=== PATIENT | male | born 1970 | race Two or more races ===

== ENCOUNTER → 2017-08-10 | Outpatient (REF) | payer BC, OTHER | LOC: M SMT 12:41 | PROVIDERS: ATTEND Nurse Practitioner Women's Health | DX: R31.29 Other microscopic hematuria (principal) ==

== ENCOUNTER → 2018-05-13 | Outpatient (CLI) | payer BC ==
[2018-05-13 13:10] LABS: HEMATOCRIT 44.8 % (42.0-52.0); HEMOGLOBIN 15.8 g/dl (13.5-17.5); MEAN CORPUSCULAR HGB CONC 35.3 g/dl (32.0-36.5); MEAN CORPUSCULAR VOLUME 90.9 fl (80.0-96.0); PLATELET COUNT, AUTOMATED 220 10^3/uL (150-450); RED BLOOD COUNT 4.93 10^6/uL (4.30-6.10)
[2018-05-13 13:59] LABS: ANION GAP 10 MEQ/L (8-16); BLOOD UREA NITROGEN 12 MG/DL (7-18); CALCIUM LEVEL 8.5 MG/DL (8.5-10.1); CARBON DIOXIDE LEVEL 27 MEQ/L (21-32); CHLORIDE LEVEL 100 MEQ/L (98-107); CREATININE FOR GFR 0.88 MG/DL (0.70-1.30); GLOMERULAR FILTRATION RATE > 60.0 (>56); GLUCOSE, FASTING 96 MG/DL (70-100); PSA SCREENING 2.59 NG/ML (< 4.0); SODIUM LEVEL 137 MEQ/L (136-145)
== END ==
LOC: M SMT 11:58
DX: Z12.5 Encounter for screening for malignant neoplasm of prostate (principal); R59.9 Enlarged lymph nodes, unspecified; R10.30 Lower abdominal pain, unspecified
CPT/HCPCS: 80048

== ENCOUNTER → 2018-05-21 | Outpatient (CLI) | payer BC ==
[~2018-05-21] MED LIST: ISOVUE-370 76% 100ML VIAL (Q9967) As Ordered
== END ==
LOC: M RAD 16:00
DX: R59.9 Enlarged lymph nodes, unspecified (principal)
CPT/HCPCS: Q9967

== ENCOUNTER → 2018-05-26 | Outpatient (CLI) | payer BC ==
[2018-05-26 13:15] LABS: INR 1.01; PROTHROMBIN TIME 13.4 SECONDS (12.1-14.4)
[2018-05-26 13:16] LABS: PARTIAL THROMBOPLASTIN TIME 32.4 SECONDS (25.4-37.6)
== END ==
LOC: M SMT 11:01
DX: R59.0 Localized enlarged lymph nodes (principal)
CPT/HCPCS: 85610

== ENCOUNTER → 2018-06-07 | Outpatient (CLI) | payer BC ==
[~2018-06-07] MED LIST changes: -ISOVUE-370 76% 100ML VIAL (Q9967) As Ordered; +LIDOCAINE 1% MDV 20ML VIAL As Ordered
== END ==
LOC: M RADPRO 11:19
DX: C82.05 Follicular lymphoma grade I, lymph nodes of inguinal region and lower limb (principal); E78.5 Hyperlipidemia, unspecified; M54.5 Low back pain; F17.200 Nicotine dependence, unspecified, uncomplicated; I10 Essential (primary) hypertension; Z79.899 Other long term (current) drug therapy
CPT/HCPCS: 38505

== ENCOUNTER → 2018-06-24 | Outpatient (REF) | payer BC ==
[2018-06-25 09:51] LABS: HEPATITIS B SURFACE ANTIGEN NEGATIVE (NEGATIVE)
[2018-06-25 10:06] LABS: HEPATITIS B CORE ANTIBODY IGM NEGATIVE (NEGATIVE)
== END ==
LOC: M LAB REF 13:29
DX: C82.85 Other types of follicular lymphoma, lymph nodes of inguinal region and lower limb (principal)
CPT/HCPCS: 87340

== ENCOUNTER → 2018-07-07 | Outpatient (REF) | payer BC | LOC: M LAB REF 13:18 | DX: C82.95 Follicular lymphoma, unspecified, lymph nodes of inguinal region and lower limb (principal) | CPT/HCPCS: 88300 ==

== ENCOUNTER → 2018-07-13 | Outpatient (CLI) | payer BC | LOC: M PLARAD 07:33 | DX: C85.90 Non-Hodgkin lymphoma, unspecified, unspecified site (principal) ==

== ENCOUNTER → 2018-08-10 | Outpatient (CLI) | payer BC | LOC: M ONCR 09:00 | DX: C82.90 Follicular lymphoma, unspecified, unspecified site (principal) | CPT/HCPCS: G0463 ==

== ENCOUNTER → 2018-09-08 | Outpatient (RCR) | payer BC ==
--- NOTE | 2018-08-18 07:16 | RADONC ---
RADIATION ONCOLOGY SIMULATION NOTE DATE: 08/16/2018 CHART #: [id number] Mr. Norris was taken to the CT scan for CT simulation of his inguinal field. CT was accomplished without difficulty or discomfort. Radiation treatment planning is underway and radiation treatments will begin subsequently. An immobilization device was created and will be used throughout the course of treatment. It was created without difficulty or discomfort. I was physically present throughout the course of CT simulation.
--- NOTE | 2018-08-20 11:48 | RADONC ---
RADIATION ONCOLOGY SIMULATION NOTE PART II: DATE: 08/19/2018 CHART NUMBER: [id number] SIMULATION NOTE PART II: Mr. Norris was taken to the linear accelerator today for clinical setup of his electron beam right inguinal boost. Setup was accomplished without difficulty or discomfort. Radiation treatment planning is underway and radiation treatments will begin subsequently. An immobilization device used at time of CT scan will be used throughout the course of this treatment. I was physically present throughout the course of this clinical setup. The NG selection was based on our CT for treatment planning.
--- NOTE | 2018-08-24 10:47 | RADONC ---
RADIATION ONCOLOGY PROGRESS NOTE: DATE: 08/23/2018 CHART NUMBER: [id number] PROGRESS NOTE: Mr. Norris underwent his first fraction of radiation to the right inguinal region for a dose of 200 cGy. It was tolerated without difficulty or discomfort. REVIEW OF SYSTEMS: The patient's review of systems is noncontributory. Denies nausea, vomiting, fevers, chills, night sweats, diplopia, headaches, anxiety or depression, anorexia, weight loss, visual disturbances, chest pain, urinary or bowel difficulties, bone pain, or neurological problems. PHYSICAL EXAMINATION: The patient's skin clearly showed no evidence of radiation change present since this was his first fraction of treatment. The remainder of his physical exam remained unchanged. Mr. Norris tolerated his treatment quite well and radiation will continue as scheduled.
--- NOTE | 2018-08-31 11:14 | RADONC ---
RADIATION ONCOLOGY PROGRESS NOTE: DATE: 08/30/2018 CHART NUMBER: [id number] Mr. Norris is presently at a dose of 1200 cGy to his right inguinal region is tolerating treatments quite well at this point with no complaints related to his radiation therapy. He is having no skin discomfort or other problems. REVIEW OF SYSTEMS: The patient's review of systems is noncontributory. He denies nausea, vomiting, fevers, chills, night sweats, diplopia, headaches, anxiety or depression, anorexia, weight loss, visual disturbances, chest pain, urinary or bowel difficulties, bone pain, or neurological problems. PHYSICAL EXAMINATION: The patient's skin is in excellent condition with no evidence of radiation change present. There is no moist or dry desquamation. His node appears to be shrinking in size. The remainder of his physical exam remains unchanged. Mr. Norris is tolerating treatments quite well and radiation will continue as scheduled.
--- NOTE | 2018-09-07 12:45 | RADONC ---
RADIATION ONCOLOGY PROGRESS NOTE DATE: 09/06/2018 CHART NUMBER: [id number] PROGRESS NOTE: Mr. 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 He is at a dose of 2200 cGy of an anticipated 3000 cGy. REVIEW OF SYSTEMS: Thus far, the patient is tolerating his radiotherapy quite well, denying any nausea, vomiting, skin irritation, fevers, chills, night sweats, diplopia, headaches, anxiety or depression. He has experienced no weight loss or pain during his treatment. PHYSICAL EXAMINATION: Skin within the irradiated volume shows only a minimal erythematous blush with no focal desquamation. No demonstrable palpable lymphadenopathy is appreciated. The remainder of the physical examination is unchanged. IMPRESSION: Tolerating therapy well. PLAN: Treatments to continue.
[~2018-09-08] MED LIST changes: +CRES10TA32 PO; +CYCL10TA PO; +FISH1000 PO; -LIDOCAINE 1% MDV 20ML VIAL As Ordered; +LISI10TA2 PO; +MULT1TAB9 PO
== END ==
LOC: M ONCR 08-16 13:47
PROVIDERS: ATTEND Radiology Radiation Oncology
DX: C82.15 Follicular lymphoma grade II, lymph nodes of inguinal region and lower limb (principal)

== ENCOUNTER 2018-09-09 15:35 | Outpatient (RCR) | payer BC | END 2018-10-08 | LOC: M ONCR 09-10 07:53 | DX: C82.15 Follicular lymphoma grade II, lymph nodes of inguinal region and lower limb (principal) | CPT/HCPCS: 77336 ==

== ENCOUNTER → 2018-10-13 | Outpatient (CLI) | payer BC | LOC: M ONCR 15:13 | DX: C82.15 Follicular lymphoma grade II, lymph nodes of inguinal region and lower limb (principal) | CPT/HCPCS: G0463 ==

== ENCOUNTER → 2019-01-25 | Outpatient (CLI) | payer BC ==
--- NOTE | 2019-01-25 17:48 | REP ---
PET/CT: History: Restaging follicular lymphoma. Comparisons: Comparison PET-CT study from [facility] dated July 14, 2018. Comparison CT abdomen and pelvis May 21, 2018. The patient has completed radiation therapy to the right groin lymph node region. TECHNIQUE: 57 minutes following the intravenous injection of a 8.59 mCi dose of F-18 FDG, three-dimensional PET scintigraphy is acquired from the skull base to the proximal thighs. Triplanar noncontrast CT scanning is acquired through the same anatomic range for attenuation correction, and image registration with scan parameters optimized to minimize radiation exposure to the patient. PET scintigraphy and CT datasets were fused and displayed on a workstation with multiplanar and projection display capability. PET/CT Findings: The previously noted enlarged hypermetabolic lymph node in the right inguinal soft tissues is no longer apparent. There is no evidence of pelvic or inguinal lymphadenopathy. No abnormal hypermetabolic uptake is seen within the pelvis. No retroperitoneal hypermetabolic nilsa uptake is seen. Normal hepatic and splenic FDG accumulation is seen. No evidence of hepatic or splenic enlargement. In the chest, there is no abnormal hypermetabolic uptake. No abnormal nilsa uptake is seen in the head and neck soft tissues. No abnormal pulmonary parenchymal hypermetabolic uptake is seen. Impression: Negative PET scintigraphy. Previously noted right groin activity is no longer apparent. No evidence of lymphadenopathy is seen. Electronically Signed by Basim Ojeda MD 01/25/2019 07:57 P
== END ==
LOC: M PLARAD 08:30
PROVIDERS: ATTEND Nurse Practitioner Family
DX: Z85.72 Personal history of non-Hodgkin lymphomas (principal)
CPT/HCPCS: 78815; A9552

== ENCOUNTER 2019-03-31 09:23 | Day surgery (SDC) | payer BC ==
[~2019-03-31] VITALS: Ht 177.8 cm; Wt 87.1 kg
[~2019-03-31 09:23] MED LIST changes: +CRES10TA PO; -CRES10TA32 PO; +MULTCAP PO; +NS 1,000 ML IV ONE
[2019-03-31] MEDS ORDERED: PROPOFOL 200 MG/20 ML VIAL As Ordered ONE ×2 (11:17→11:26)
--- NOTE | 2019-03-31 11:30 | ROOR ---
Patient Name: Jovany Norris Procedure Date: 03/31/2019 11:18 AM Date of : 1970 Age: 49 Room: [facility] Gender: Male Note Status: Finalized Procedure: Colonoscopy Indications: Screening for colorectal malignant neoplasm Providers: Estuardo Chang Jr, MD Referring MD: DEJA BENAVIDEZ Requesting Provider: Medicines: Propofol per Anesthesia Complications: No immediate complications. Procedure: Pre-Anesthesia Assessment: - Prior to the procedure, a History and Physical was performed, and patient medications and allergies were reviewed. The patient is competent. The risks and benefits of the procedure and the sedation options and risks were discussed with the patient. All questions were answered and informed consent was obtained. Patient identification and proposed procedure were verified by the physician and the nurse in the pre-procedure area and in the procedure room. Mental Status Examination: alert and oriented. Airway Examination: normal oropharyngeal airway and neck mobility. Respiratory Examination: clear to auscultation. CV Examination: normal. ASA Grade Assessment: II - A patient with mild systemic disease. After reviewing the risks and benefits, the patient was deemed in satisfactory condition to undergo the procedure. The anesthesia plan was to use moderate sedation / analgesia (conscious sedation). Immediately prior to administration of medications, the patient was re-assessed for adequacy to receive sedatives. The heart rate, respiratory rate, oxygen saturations, blood pressure, adequacy of pulmonary ventilation, and response to care were monitored throughout the procedure. The physical status of the patient was re-assessed after the procedure. The Colonoscope was introduced through the anus and advanced to the cecum, identified by appendiceal orifice and ileocecal valve. The colonoscopy was performed without difficulty. The patient tolerated the procedure well. The quality of the bowel preparation was adequate. Findings: The rectum, recto-sigmoid colon, sigmoid colon, descending colon, transverse colon, ascending colon, cecum, appendiceal orifice, ileocecal valve and ileum appeared normal. Impression: - The rectum, recto-sigmoid colon, sigmoid colon, descending colon, transverse colon, ascending colon, cecum, appendiceal orifice, ileocecal valve and terminal ileum are normal. - No specimens collected. Recommendation: - Discharge patient to home (ambulatory). - Repeat colonoscopy in 10 years for screening purposes. Estuardo Chang MD Estuardo Chang Jr, MD 03/31/2019 11:30:39 AM Electronically signed by Estuardo Chang Jr, MD Number of Addenda: 0 Note Initiated On: 03/31/2019 11:18 AM Estimated Blood Loss: Estimated blood loss: none.
[2019-03-31 11:55] VITALS: BP 147/86
== END 2019-03-31 12:01 | disposition home or self-care (01) ==
LOC: M OPP 09:23
PROVIDERS: ATTEND Surgery
DX: Z12.11 Encounter for screening for malignant neoplasm of colon (principal); Z79.899 Other long term (current) drug therapy; Z80.0 Family history of malignant neoplasm of digestive organs; F17.210 Nicotine dependence, cigarettes, uncomplicated

== ENCOUNTER → 2022-01-15 | Outpatient (CLI) | payer BC ==
[~2022-01-15] MED LIST changes: +CYCL-707 PO; -CYCL10TA PO; -LISI10TA2 PO; +LISI10TA24 PO; +MULT-90 PO; -NS 1,000 ML IV ONE; +TOPR25TA PO
== END ==
LOC: M WUC 08:51
PROVIDERS: ATTEND Physician Assistant
DX: I10 Essential (primary) hypertension (principal); F17.210 Nicotine dependence, cigarettes, uncomplicated

== ENCOUNTER → 2022-04-16 | Outpatient (CLI) | payer BC | LOC: M RAD 14:37 | PROVIDERS: ATTEND Internal Medicine Cardiovascular Disease | DX: H53.8 Other visual disturbances (principal) ==

== ENCOUNTER → 2022-08-25 | Outpatient (CLI) | payer BC | LOC: M RAD 09:58 | PROVIDERS: ATTEND Podiatrist Foot & Ankle Surgery | DX: I73.9 Peripheral vascular disease, unspecified (principal) ==

== ENCOUNTER → 2023-09-08 | Outpatient (CLI) | payer BC ==
[~2023-09-08] MED LIST changes: +OMEG10002 PO
== END ==
LOC: M WUC 11:29
PROVIDERS: ATTEND Physician Assistant
DX: S23.41XA Sprain of ribs, initial encounter (principal); W18.30XA Fall on same level, unspecified, initial encounter; Y92.009 Unspecified place in unspecified non-institutional (private) residence as the place of occurrence of the external cause